=== PATIENT | female | born 1990 | race Hispanic/Latino ===

== ENCOUNTER 2023-03-10 21:26 | Emergency (ER) | payer BC ==
[~2023-03-10] VITALS: Ht 154.9 cm; Wt 62.6 kg
[2023-03-11] MEDS ORDERED: ACETAMINOPHEN 500 MG TABLET PO ONE
[2023-03-11 00:42] LABS: BASOPHILS # (AUTO) 0.04 K/uL (0.00-0.20); BASOPHILS % (AUTO) 0.4 % (0.0-5.0); EOSINOPHILS # (AUTO) 0.09 K/uL (0.00-0.70); EOSINOPHILS % (AUTO) 0.8 % (0.0-8.0); HEMATOCRIT 37.1 % (36-48); IMMATURE GRANULOCYTE ABSOLUTE 0.03 K/uL (0-1); LYMPHOCYTES # (AUTO) 3.5 K/uL (1.0-4.8); LYMPHOCYTES % (AUTO) 32.3 % (21.0-51.0); MEAN CORPUSCULAR HGB CONC 32.9 g/dL (32.0-36.0); MEAN CORPUSCULAR VOLUME 94.2 fL (79-99); MONOCYTES # (AUTO) 0.8 K/uL (0.1-1.0); MONOCYTES % (AUTO) 7.7 % (3.0-13.0); NEUTROPHILS # (AUTO) 6.3 K/uL (1.8-7.7); NEUTROPHILS % (AUTO) 58.5 % (40.0-77.0); PLATELET COUNT (AUTO) 283 K/uL (130-400); RED BLOOD CELL COUNT(AUTO) 3.94 MIL/uL (4.00-5.50); RED CELL DISTRIBUTION WIDTH 13.2 % (11.0-15.5); WHITE BLOOD COUNT (AUTO) 10.7 K/uL (4.8-10.8)
[2023-03-11 00:52] LABS: ADD UA MICROSCOPIC YES; APPEARANCE,URINE CLEAR (CLEAR); BILIRUBIN,URINE NEGATIVE (NEGATIVE); COLOR,URINE LIGHT-YELLOW (YELLOW); GLUCOSE, URINE (UA) NEGATIVE (NEGATIVE); KETONES,URINE NEGATIVE (NEGATIVE); LEUKOCYTE ESTERASE ,URINE 250 Leu/uL (NEGATIVE); NITRATE,URINE NEGATIVE (NEGATIVE); OCCULT BLOOD,URINE LARGE (NEGATIVE); PH,URINE 5.5 (5.0-8.0); PROTEIN,URINE NEGATIVE (NEGATIVE); UROBILINOGEN,URINE 0.2 mg/dL (0.2-1.0)
[2023-03-11 00:57] LABS: MUCUS,URINE RARE LPF (None Seen); RBC,URINE TNTC /HPF (0-1); SQUAMOUS EPITHELIAL CELL,UR RARE /HPF (0-2); WBC,URINE 26-50 /HPF (0-1)
[2023-03-11] MEDS ORDERED: KETOROLAC 30MG VIAL (30MG/ML) IVP ONE (01:00)
[2023-03-11] MEDS ORDERED: FAMOTIDINE 20MG VIAL IV ONE (01:00)
[2023-03-11] MEDS ORDERED: METOCLOPRAMIDE 10 MG/2 ML VIAL IVP ONE (01:00)
[2023-03-11] MEDS ORDERED: 0.9%NACL 1000ML 1,000 ML IV ONE (01:00)
[2023-03-11] MEDS ORDERED: TAMSULOSIN HCL 0.4 MG CAP.ER.24H PO ONE (01:00)
[2023-03-11 01:01] LABS: CREATININE 0.8 mg/dL (0.5-1.5); POTASSIUM 4.1 mmol/L (3.5-5.1)
[2023-03-11 01:05] LABS: ALBUMIN 3.8 g/dL (3.5-5.0); BILIRUBIN,TOTAL 0.2 mg/dL (0.2-1.0); TOTAL PROTEIN, SERUM 7.2 g/dL (6.0-8.3)
[2023-03-11] MEDS ORDERED: TAMS-1 PO (04:34)
[2023-03-11] MEDS ORDERED: KETO10 PO (04:34)
[2023-03-11] MEDS ORDERED: FAMO-136 PO (04:34)
[2023-03-11] MEDS ORDERED: METO-296 PO (04:34)
[2023-03-11 05:01] VITALS: BP 123/68; PULSE 73; RESP 16; O2SAT 100
== END 2023-03-11 05:03 | disposition home or self-care (01) ==
LOC: EDH 21:26
DX: N13.2 Hydronephrosis with renal and ureteral calculous obstruction (principal)
CPT/HCPCS: 99284; 80053; 83690; 85025; 87077; 87088; 87186; 81001; 81025; 36415; 74176; 96374; 96361; 96375; J3490; J7030; J1885; J2765

== ENCOUNTER 2023-03-25 07:04 | Day surgery (SDC) | payer BC ==
[~2023-03-25] VITALS: Ht 154.9 cm; Wt 64.7 kg
[2023-03-25] VITALS (19 sets, daily range): BP systolic 94–122; BP diastolic 50–81; PULSE 65–83; RESP 11–17
[~2023-03-25 07:04] MED LIST: FAMO-136 PO; KETO10 PO; METO-296 PO; TAMS-1 PO
[2023-03-25] MEDS ORDERED: HYDR-4068 PO (08:40)
[2023-03-25] MEDS ORDERED: IOHEXOL-350 50ML VIAL IV ONE (09:09)
[2023-03-25] MEDS ORDERED: LACTATED RINGERS 1000ML 1,000 ML IV ONE (10:15)
[2023-03-25] MEDS ORDERED: LEVOFLOXACIN 500 MG/D5W 100 ML 100 ML ONE (10:15)
[2023-03-25] MEDS ORDERED: MIDAZOLAM HCL 1 MG/ML 2ML VIAL ONE (10:56)
[2023-03-25] MEDS ORDERED: ONDANSETRON 4MG INJ ONE ×2 (10:56→13:05)
[2023-03-25] MEDS ORDERED: GLYCOPYRROLATE 1 MG/5 ML SYRINGE ONE (10:56)
[2023-03-25] MEDS ORDERED: DEXAMETHASONE SOD PHOSPHATE 10MG/ML 1ML VIAL ONE (10:56)
[2023-03-25] MEDS ORDERED: SUCCINYLCHOLINE 200MG/10ML SYR ONE (10:56)
[2023-03-25] MEDS ORDERED: LIDOCAINE PF 100MG/5ML (2%) SYRINGE 5ML ONE (10:56)
[2023-03-25] MEDS ORDERED: NEOSTIGMINE 5MG/5ML SYR IV ONE (10:57)
[2023-03-25] MEDS ORDERED: ROCURONIUM 10MG/1ML SYR 10 MG/ML ML ONE (10:57)
[2023-03-25] MEDS ORDERED: PROPOFOL 10 MG/ML 20ML VIAL IV ONE (10:57)
[2023-03-25] MEDS ORDERED: FENTANYL CITRATE PF 50 MCG/1 ML 2ML VIAL ONE ×2 (10:57→12:05)
[2023-03-25] MEDS ORDERED: TAMS-1 PO (11:00)
[2023-03-25] MEDS ORDERED: FAMOTIDINE 20MG VIAL IV ONE (11:06)
[2023-03-25] MEDS ORDERED: MEPERIDINE-PF 25 MG/ML SYG ONE (13:05)
[2023-03-25] MEDS ORDERED: PHENAZOPYRIDINE HCL 200 MG TABLET ONE (14:05)
== END 2023-03-25 14:41 | disposition home or self-care (01) ==
LOC: DAH 07:04
PROVIDERS: ATTEND Urology
DX: N13.2 Hydronephrosis with renal and ureteral calculous obstruction (principal); K21.9 Gastro-esophageal reflux disease without esophagitis; Z91.040 Latex allergy status; Z79.899 Other long term (current) drug therapy; Z72.89 Other problems related to lifestyle
CPT/HCPCS: 52332; 81025; 74420; A4600; A4510; C2617; A4663; A6207; J7030; C1769 ×3; A4354; C1758 ×2; J7120; J3490 ×2; J3010 ×2; J0330; J1100; J2710; J1956; J2001; J2250; J2704; J2405 ×2; J2175; Q9967; A4358; C1726; A4215; A4223; A4222; A4221